=== PATIENT | female | born 1950 | race Caucasian/White ===

== ENCOUNTER 2017-08-11 08:30 | Inpatient (IN) | payer MEDICARE, OTHER ==
[~2017-08-11] VITALS: Ht 162.6 cm; Wt 69.9 kg
[2017-08-11] MEDS ORDERED: SODIUM CHLORIDE 0.9% 1,000 ML IV ONE (09:09)
[2017-08-11] MEDS ORDERED: NITROGLYCERIN OINT 1GM/INCH UDPKT TD ONE (09:15)
[2017-08-11] MEDS ORDERED: ASPIRIN 81MG TABLET PO ONE (09:15)
[2017-08-11 09:49] LABS: BASOPHILS % 0.7 % (0.0-2.0); EOSINOPHILS % 1.9 % (0.0-5.0); HEMATOCRIT. 40.6 % (36.0-48.0); HEMOGLOBIN. 13.3 g/dL (12.0-16.0); LYMPHOCYTES % 22.4 % (20.0-50.0); MEAN CORPUSCULAR HEMOGLOBIN 31.2 pg (28.0-32.0); MEAN CORPUSCULAR VOLUME 94.9 fL (81.0-99.0); MONOCYTES % 7.3 % (2.0-8.0); NEUTROPHILS % 67.7 % (40.0-76.0); PLATELET 178 x1000/uL (130-400); RED BLOOD CELL COUNT 4.27 mill/uL (4.2-5.4); RED CELL DISTRIBUTION WIDTH 13.7 % (11.6-14.6)
[2017-08-11 09:55] LABS: INR 1.1; PARTIAL THROMBOPLASTIN TIME 27.1 sec (23.4-31.0); PROTHROMBIN TIME 11.5 sec (9.4-11.6)
[2017-08-11 10:05] LABS: CARBON DIOXIDE 32 mEq/L (21-32); CHLORIDE 111 mEq/L (98-107); TROPONIN I < 0.02 ng/mL (0.00-0.04)
[2017-08-11] MEDS ORDERED: DIPHENHYDRAMINE 50MG/ML VIAL IV PRN (11:15)
[2017-08-11] MEDS ORDERED: ACETAMINOPHEN 325MG TABLET PO PRN (11:15)
[2017-08-11] MEDS ORDERED: CLONIDINE 0.1MG TABLET PO PRN (11:15)
[2017-08-11] MEDS ORDERED: ONDANSETRON HCL 4MG/2ML VIAL IV PRN (11:15)
[2017-08-11] MEDS ORDERED: IPRATROPIUM/ALBUTEROL 0.5-3(2.5)MG/3ML NEB INH PRN (11:15)
[2017-08-11] MEDS ORDERED: HYDROCODONE/ACETAMINOPHEN 5/325MG TABLET PO PRN (11:15)
[2017-08-11 12:47] LABS: CLARITY URINE CLEAR (CLEAR); COLOR URINE YELLOW (YELLOW); GLUCOSE URINE NEGATIVE (NEGATIVE); KETONES URINE NEGATIVE (NEGATIVE); LEUKOCYTE ESTERASE URINE NEGATIVE (NEGATIVE); NITRITE URINE NEGATIVE (NEGATIVE); OCCULT BLOOD URINE NEGATIVE (NEGATIVE); PROTEIN URINE NEGATIVE (NEGATIVE); SPECIFIC GRAVITY URINE 1.011 (1.005-1.030); UROBILINOGEN URINE 0.2 E.U./dL (0.2-1.0)
[2017-08-11 13:24] LABS: *AMPHETAMINES SCREEN URINE NEGATIVE (NEGATIVE); *BARBITURATES SCREEN URINE NEGATIVE (NEGATIVE); *BENZODIAZEPINES SCREEN URINE NEGATIVE (NEGATIVE); *COCAINE SCREEN URINE NEGATIVE (NEGATIVE); CANNABINOID URINE SCREEN NEGATIVE (NEGATIVE); METHADONE URINE SCREEN NEGATIVE (NEGATIVE); OPIATES URINE SCREEN NEGATIVE (NEGATIVE); PHENCYCLIDINE URINE SCREEN NEGATIVE (NEGATIVE)
[2017-08-11] MEDS ORDERED: REGADENOSON 0.4 MG/5 ML IV NR (19:45)
[2017-08-11 22:10] VITALS: BP 135/67
[2017-08-11 22:30] VITALS: BP 135/67
[2017-08-12] VITALS: BP 134/63
[2017-08-12 04:00] VITALS: BP 138/62
[2017-08-12 07:30] LABS: BASOPHILS % 0.8 % (0.0-2.0); EOSINOPHILS % 3.9 % (0.0-5.0); HEMATOCRIT. 36.6 % (36.0-48.0); LYMPHOCYTES % 31.1 % (20.0-50.0); MEAN CORPUSCULAR HEMOGLOBIN 31.1 pg (28.0-32.0); MEAN CORPUSCULAR VOLUME 94.8 fL (81.0-99.0); MEAN PLATELET VOLUME 9.1 fl (7.4-10.4); MONOCYTES % 8.8 % (2.0-8.0); NEUTROPHILS % 55.4 % (40.0-76.0); PLATELET 157 x1000/uL (130-400); RED BLOOD CELL COUNT 3.86 mill/uL (4.2-5.4); RED CELL DISTRIBUTION WIDTH 13.3 % (11.6-14.6)
[2017-08-12 07:38] LABS: CARBON DIOXIDE 27 mEq/L (21-32); CHLORIDE 111 mEq/L (98-107); LDL CHOLESTEROL 69 mg/dL (5-100)
[2017-08-12 07:47] LABS: HDL CHOLESTEROL 39 mg/dL (40-59)
[2017-08-12 08:00] VITALS: BP 148/67
[2017-08-12] MEDS ORDERED: TRAM50TA3 PO (09:01)
[2017-08-12] MEDS ORDERED: OXYB5TAB11 PO (09:04)
[2017-08-12] MEDS ORDERED: LORA2VIA33 IV (09:04)
[2017-08-12] MEDS ORDERED: ENAL20TA67 PO (09:04)
[2017-08-12] MEDS ORDERED: VENL-179 PO (09:05)
[2017-08-12] MEDS ORDERED: OLAN2.5T3 PO (09:05)
[2017-08-12] MEDS ORDERED: INFLUENZA VIRUS VACCINE 0.5ML SYR IM ONE (10:00)
[2017-08-12] MEDS ORDERED: PNEUMOCOCCAL 23-VAL P-SAC VAC 0.5 ML IM ONE (11:00)
[2017-08-12 12:00] VITALS: BP 150/97
[2017-08-12] MEDS ORDERED: REGADENOSON 0.4 MG/5 ML IV ONE (12:29)
[2017-08-12 16:00] VITALS: BP 117/66
[2017-08-12 16:28] VITALS: BP 116/62
== END 2017-08-12 18:40 | disposition home or self-care (01) | DRG 198 ==
LOC: ER 08:47 → 5WST 10:27 → EDBEDREQ 10:30 → EDBEDREQTM 10:30 → ENRESERV 14:09 → CANRESERV 14:09 → ENRESERV 19:09 → EDBEDREQ 22:12
PROVIDERS: ADMIT Internal Medicine; ATTEND Internal Medicine
DX: I24.9 Acute ischemic heart disease, unspecified (principal); E87.0 Hyperosmolality and hypernatremia; B20 Human immunodeficiency virus [HIV] disease; C50.919 Malignant neoplasm of unspecified site of unspecified female breast; I10 Essential (primary) hypertension; J32.9 Chronic sinusitis, unspecified; K59.00 Constipation, unspecified; R13.10 Dysphagia, unspecified; F32.9 Major depressive disorder, single episode, unspecified; F41.9 Anxiety disorder, unspecified; K64.9 Unspecified hemorrhoids; M54.9 Dorsalgia, unspecified; F20.9 Schizophrenia, unspecified; R35.1 Nocturia; G43.909 Migraine, unspecified, not intractable, without status migrainosus; Z90.710 Acquired absence of both cervix and uterus; Z86.73 Personal history of transient ischemic attack (TIA), and cerebral infarction without residual deficits; Z82.49 Family history of ischemic heart disease and other diseases of the circulatory system
CPT/HCPCS: 36415; 71010; 78452; 80053; 80061; 80305; 81003; 83880; 84443; 84484; 85025; 85610; 85651; 85730; 87040; 87077; 87086; 87186; 90686; 90732; 93005; 93017; 93306; 99285; A9500; J2785; J7030